=== PATIENT | male | born 1940 | race Caucasian/White ===

== ENCOUNTER 2018-01-27 18:18 | Emergency (ER) | payer MEDICARE, BC ==
[~2018-01-27] VITALS: Ht 167.6 cm; Wt 81.6 kg
[~2018-01-27 18:18] MED LIST: LEVO25TA2 PO; METF-440 PO
--- NOTE | 2018-01-27 18:20 | NUR ---
[id number], CAME TO ER C/O PAIN DURING URINATION, BANKS CATHETER WAS PLACED AT [facility] 2 DAYS AGO D/T DYSURIA. AWAITING MD FOR EVAL.
--- NOTE | 2018-01-27 18:30 | NUR ---
LYNETTE POISER AT BS FOR EVAL.
--- NOTE | 2018-01-27 20:05 | NUR ---
PT ABLE TO PROVIDE URINE. SEEN BY HREI GUTIERREZ, AWAITING LAB RESULTS
[2018-01-27 20:17] LABS: APPEARANCE,URINE Cloudy (CLEAR); BILIRUBIN,URINE SMALL (NEGATIVE); BLOOD, URINE Large Ery/uL (NEGATIVE); COLOR,URINE Dark (YELLOW); KETONES,URINE Trace (NEGATIVE); LEUKOCYTE ESTERASE ,URINE Trace (NEGATIVE); NITRITE, URINE Negative (NEGATIVE); PH,URINE 5.5 (5.0-8.0); PROTEIN,URINE >=300 mg/dl (NEGATIVE); UGLUCOSE Negative (NEGATIVE); UROBILINOGEN,URINE 0.2 EU/dL (0.2)
--- NOTE | 2018-01-27 20:24 | NUR ---
PT SEEN BY HERI GUTIERREZ, CLEARED FOR DISCHARGE.
--- NOTE | 2018-01-27 20:26 | NUR ---
PT ABLE TO URINATE X2, PATTERN SCRATCHER DEGRASSI MADE AWARE.
[2018-01-27 20:29] LABS: RBC,URINE TOO NUMEROUS TO COUN /HPF (0-2)
[2018-01-27 20:30] LABS: BACTERIA,URINE Few /HPF (None Seen); SQUAMOUS EPITHELIAL CELL,UR None Seen /HPF (None Seen)
--- NOTE | 2018-01-27 20:43 | NUR ---
Patient discharged to home in stable condition. Written and verbal after care instructions given. Patient verbalizes understanding of instruction. ambulatory with a steady gait
[2018-01-27 20:45] VITALS: BP 118/78
== END 2018-01-27 20:45 | disposition home or self-care (01) ==
LOC: ER 18:20
DX: T83.098A Other mechanical complication of other urinary catheter, initial encounter (principal); E11.9 Type 2 diabetes mellitus without complications; Z79.84 Long term (current) use of oral hypoglycemic drugs
CPT/HCPCS: 81000-TC; 87086-TC; A4606; Z7610

== ENCOUNTER 2022-08-31 11:27 | Emergency (ER) | payer MEDICARE, BC ==
[~2022-08-31] VITALS: Ht 167.6 cm; Wt 79.4 kg
--- NOTE | 2022-08-31 11:50 | NUR ---
lac #20, blood drawn and collected by phleb at bedside
--- NOTE | 2022-08-31 11:53 | NUR ---
pt taken to radiology for ct
--- NOTE | 2022-08-31 11:58 | NUR ---
pt returned from radiology
[2022-08-31] MEDS ORDERED: IV NS 0.9% 1,000 ML BAG IV ONE (12:00)
[2022-08-31 12:11] LABS: BASOPHILS % (AUTO) 0.3 % (0.0-2.0); EOSINOPHILS % (AUTO) 0.1 % (0.0-6.0); HEMATOCRIT 42 % (39-51); HEMOGLOBIN 13.5 g/dL (13.5-17.5); LYMPHOCYTES # (AUTO) 1.2 K/uL (0.8-4.8); LYMPHOCYTES % (AUTO) 15.8 % (20.0-44.0); MEAN CORPUSCULAR HGB CONC 32 g/dl (31.0-36.0); MEAN CORPUSCULAR VOLUME 93 fL (80-96); MONOCYTES # (AUTO) 0.7 K/uL (0.1-1.30); MONOCYTES % (AUTO) 9.5 % (2.0-12.0); NEUTROPHILS # (AUTO) 5.6 K/uL (1.8-8.9); NEUTROPHILS % (AUTO) 74.3 % (43.0-81.0); PLATELET COUNT (AUTO) 241 K/uL (150-450); RED BLOOD CELL COUNT(AUTO) 4.51 MIL/uL (4.5-6.0); WHITE BLOOD COUNT (AUTO) 7.6 K/uL (4.3-11.0)
--- NOTE | 2022-08-31 12:15 | NUR ---
URINE SAMPLE COLLECTED AND SENT TO LAB
[2022-08-31 12:32] LABS: CALCIUM, SERUM 9.1 mg/dL (8.5-10.1); CREATININE 1.1 mg/dL (0.6-1.3); POTASSIUM 3.2 mmol/L (3.5-5.1)
[2022-08-31 12:38] LABS: ALBUMIN 3.9 g/dL (3.4-5.0); BILIRUBIN,DIRECT 0.2 mg/dL (0.0-0.2); BILIRUBIN,TOTAL 0.6 mg/dL (0.2-1.0); TOTAL PROTEIN, SERUM 7.6 g/dL (6.4-8.2)
[2022-08-31 13:04] LABS: BILIRUBIN,URINE NEGATIVE (NEGATIVE); COLOR,URINE YELLOW (YELLOW); LEUKOCYTE ESTERASE ,URINE NEGATIVE (NEGATIVE); NITRITE, URINE NEGATIVE (NEGATIVE); PROTEIN,URINE NEGATIVE (NEGATIVE); UGLUCOSE NEGATIVE (NEGATIVE); UROBILINOGEN,URINE 0.2 EU/dL (0.2)
[2022-08-31 13:06] LABS: BACTERIA,URINE Rare /HPF (None Seen); RBC,URINE 0-2 /HPF (0-2); SQUAMOUS EPITHELIAL CELL,UR Many /HPF (None Seen); WBC,URINE 0-2 /HPF (0-3)
[2022-08-31] MEDS ORDERED: MINERAL OIL 133 ML (PYXIS) 1 EA ENEMA RC ONE ×2 (14:00→14:12)
--- NOTE | 2022-08-31 14:33 | NUR ---
FLEET ENEMA ADMINISTERED INDICATED. PT CURRENTLY LAYING SIDE POSITION IN BED. NOT IN ACUTE DISTRESS.
[2022-08-31] MEDS ORDERED: POLY17PO4 PO (14:34)
--- NOTE | 2022-08-31 15:05 | NUR ---
PT CURRENTLY IN THE BATHROOM
--- NOTE | 2022-08-31 15:23 | NUR ---
SPOKE WITH PT, IS ABLE TO TRANSPORT HIM HOME UPON DISCHARGE
[2022-08-31] MEDS ORDERED: POLYETHYLENE GLYCOL 3350 17 GM POWD.PACK PO ONE (17:00)
--- NOTE | 2022-08-31 17:20 | NUR ---
IV removed. Catheter intact and site benign. Pressure and 4x4 applied to site. No bleeding noted.
[2022-08-31 17:23] VITALS: BP 133/75
--- NOTE | 2022-08-31 17:23 | NUR ---
Patient discharged to home in stable condition. Written and verbal after care instructions given. Patient verbalizes understanding of instruction.
== END 2022-08-31 17:25 | disposition home or self-care (01) ==
LOC: ER 11:34
DX: K59.00 Constipation, unspecified (principal); R10.84 Generalized abdominal pain; E87.6 Hypokalemia; K57.30 Diverticulosis of large intestine without perforation or abscess without bleeding; E11.9 Type 2 diabetes mellitus without complications; Z79.899 Other long term (current) drug therapy; Z79.84 Long term (current) use of oral hypoglycemic drugs
CPT/HCPCS: 99284; 74176; 96360; 85025; 80048; 83690; 80076; 81001; 36415; J7030